=== PATIENT | female | born 1965 | race Caucasian/White ===

== ENCOUNTER 2024-08-04 06:02 | Day surgery (SDC) | payer SELFPAY ==
[2024-07-30 15:56] VITALS: BMI 20.7
[2024-08-04] MEDS ORDERED: LIDOCAINE HCL 1%, 10 MG/ML (20ML VIAL) ONE (07:19)
[2024-08-04] MEDS ORDERED: GUM MASTIC/STORAX/MSAL/ALCOHOL 1 DRP DROPSBTL MC ONE (07:19)
[2024-08-04] MEDS ORDERED: EPINEPHrine/PF 1 MG/1 ML (1:1,000) AMPULE ONE (07:19)
[2024-08-04] MEDS ORDERED: BUPIVACAINE HCL/PF 2.5 MG/ML - 30 ML VIAL IJ ONE (07:19)
[2024-08-04] MEDS ORDERED: BACITRACIN ZINC 15 GM TUBE TOPICAL OINTMENT ONE (07:19)
[2024-08-04] MEDS ORDERED: MIDAZOLAM HCL 2 MG/2 ML SINGLE DOSE VIAL ONE (07:33)
[2024-08-04] MEDS ORDERED: PROPOFOL 20 ML ONE (07:33)
[2024-08-04] MEDS ORDERED: ROCURONIUM BROMIDE 50 MG/5 ML SYRINGE ONE (07:34)
[2024-08-04] MEDS ORDERED: SUGAMMADEX SODIUM 200 MG/2 ML VIAL ONE (07:34)
[2024-08-04] MEDS ORDERED: ONDANSETRON 4 MG/2 ML VIAL ONE (09:20)
[2024-08-04] MEDS ORDERED: DEXAMETHASONE SOD PHOSPHATE 4 MG/1 ML VIAL ONE (09:20)
[2024-08-04] MEDS ORDERED: FENTANYL CITRATE/PF 50 MCG/ML VIAL ONE (13:22)
[2024-08-04] MEDS ORDERED: ONDANSETRON 4 MG/2 ML VIAL IVPUSH ONE (13:30)
[2024-08-04] MEDS ORDERED: oxyCODONE HCL 5 MG TABLET PO PRN (13:34)
[2024-08-04] MEDS: ONDANSETRON 4 MG/2 ML VIAL ONE (13:35)
[2024-08-04 14:46] VITALS: TEMP 97.1
[2024-08-04] MEDS: oxyCODONE HCL 5 MG TABLET ONE (15:01)
[2024-08-04 15:36] VITALS: BP 114/64; PULSE 68; RESP 16
== END 2024-08-04 15:30 | disposition home or self-care (01) ==
LOC: FASU 06:02
PROVIDERS: ATTEND Surgery
PROC: 0W0F0ZZ Alteration of Abdominal Wall, Open Approach (ICD-10-PCS; principal; 2024-08-04 09:04)
PROC: 0J083ZZ Alteration of Abdomen Subcutaneous Tissue and Fascia, Percutaneous Approach (ICD-10-PCS; 2024-08-04 09:04)
DX: Z41.1 Encounter for cosmetic surgery (principal); K42.9 Umbilical hernia without obstruction or gangrene; L98.7 Excessive and redundant skin and subcutaneous tissue; M62.08 Separation of muscle (nontraumatic), other site
CPT/HCPCS: 88304-TC; 94760